=== PATIENT | female | born 1995 | race Two or more races ===

== ENCOUNTER 2025-07-05 10:16 | Emergency (ER) | payer OTHER ==
[~2025-07-05] VITALS: Ht 154.9 cm; Wt 48.5 kg
[2025-07-05 12:14] LABS: BASO % 0.8 % (0.1-1.2); EOS # 0.18 (0.04-0.54); EOS % 1.5 % (0.7-7.0); LYMPH # 2.00 (1.18-3.74); LYMPH % 17.0 % (19.3-53.1); MEAN PLATELET VOLUME 9.80 fl (9.4-12.4); MONO # 1.02 (0.24-0.82); MONO % 8.7 % (4.7-12.5); NEUT # 8.45 (1.56-6.13); NEUT % 71.7 % (34.0-71.1); RED CELL DISTRIBUTION WIDTH 12.2 % (11.6-14.4)
[2025-07-05 12:34] LABS: BUN CREA RATIO 25.0 (7.0-25.0); CREATININE SERUM 0.68 mg/dL (0.55-1.02); GFR 100.92; GLUCOSE FASTING 91.0 mg/dL (65-100); HCG QUANTITATIVE 209.0 mUI/mL (1-3); OSMOLALITY SERUM 286.0 MOSM/KG (275-295)
== END 2025-07-05 14:15 | disposition home or self-care (01) ==
LOC: ER 10:16
PROVIDERS: Emergency Medicine
DX: O20.8 Other hemorrhage in early pregnancy (principal); Z3A.01 Less than 8 weeks gestation of pregnancy

== ENCOUNTER 2025-07-13 14:46 | Emergency (ER) | payer OTHER ==
[~2025-07-13] VITALS: Ht 157.5 cm; Wt 48.1 kg
[2025-07-13 17:24] LABS: BASO % 1.0 % (0.1-1.2); EOS # 0.50 (0.04-0.54); EOS % 4.9 % (0.7-7.0); LYMPH # 2.71 (1.18-3.74); LYMPH % 26.7 % (19.3-53.1); MEAN PLATELET VOLUME 9.70 fl (9.4-12.4); MONO # 0.72 (0.24-0.82); MONO % 7.1 % (4.7-12.5); NEUT # 6.08 (1.56-6.13); NEUT % 60.0 % (34.0-71.1); RED CELL DISTRIBUTION WIDTH 12.1 % (11.6-14.4)
[2025-07-13 17:33] LABS: URINE APPEARANCE Clear; URINE BILIRRUBIN Negative (NEGATIVE); URINE BLOOD Large; URINE COLOR Yellow; URINE GLUCOSE Negative (NEGATIVE); URINE KETONE Negative (NEGATIVE); URINE LEUKOCYTE Negative; URINE NITRATE Negative; URINE PROTEIN Negative (NEGATIVE); URINE UROBILINOGEN 0.2 E.U./dl
[2025-07-13 17:38] LABS: URINE BACTERIA 105.5 uL (0.0-1933); URINE EPITHELIAL CELLS 27.8 uL (0.0-38.8); URINE RBC 1658.6 uL (0.0-20.8); URINE WBC 13.6 uL (0.0-23.2)
[2025-07-13 17:48] LABS: INR 0.96
[2025-07-13 17:56] LABS: ALT/SGPT 18.0 U/L (12-78); AST/SGOT 13.0 U/L (15-37); BILIRUBIN TOTAL 0.72 mg/dL (0.3-1.2); BUN CREA RATIO 17.0 (7.0-25.0); CREATININE SERUM 0.75 mg/dL (0.55-1.02); GFR 90.13; GLOBULINA 3.0 G/DL (2.4-3.5); GLUCOSE FASTING 89.0 mg/dL (65-100); OSMOLALITY SERUM 286.0 MOSM/KG (275-295)
[2025-07-13 18:01] LABS: URINE CAST 0.14 uL (0.0-1.40); URINE MUCUS SCANT
[2025-07-13 18:02] LABS: URINE CRYSTALS FEW /HPF
== END 2025-07-13 20:51 | disposition home or self-care (01) ==
LOC: ER 14:46
PROVIDERS: General Practice
DX: N93.9 Abnormal uterine and vaginal bleeding, unspecified (principal)